=== PATIENT | female | born 1995 | race Caucasian/White ===

== ENCOUNTER 2017-04-12 17:18 | Emergency (ER) | payer SELFPAY ==
--- NOTE | 2017-04-12 18:17 | ED Physician Chart ---
ED Chief Complaint/HPI - Patient Information Date Seen:: 04/12/17 Time Seen:: 17:30 Chief Complaint:: Palpitations History of Present Illness:: onset x 3 hours of intermittent palpitations, anxiousness, generalized paresthesias of all extremities, and nervousness; pt denies trauma, H/As, neck pain, exertional C/P, SOB, Abd. Pain, A/N/V/D/C, fever, chills, or urinary s/s; LNMP: 03/19/17; pt denies ; pt had similar episode last week Allergies:: Allergies Allergy/AdvReac Type Severity Reaction Status Date / Time No Known Allergies Allergy Verified 02/25/17 23:37 Vitals:: Vital Signs - 8 hr 04/12/17 17:31 Temp 98 F HR 78 RR 16 BP 119/73 O2 Sat % 100 Historian:: Patient Review:: Nurse's Note Reviewed <Ricardo Beaver - Last Filed: 04/12/17 18:11> - Patient Information Allergies:: Allergies Allergy/AdvReac Type Severity Reaction Status Date / Time No Known Allergies Allergy Verified 02/25/17 23:37 Vitals:: Vital Signs - 8 hr 04/12/17 04/12/17 17:31 18:19 Temp 98 F HR 78 71 RR 16 14 BP 119/73 101/65 O2 Sat % 100 100 <Jayson Douglass - Last Filed: 04/12/17 19:38> ED Review of Systems - Review of Systems General/Constitutional: No fever, No chills, No weight loss, No weakness, No diaphoresis, No edema, No loss of appetite Skin: No skin lesions, No rash, No bruising Head: No headache, No light-headedness Eyes: No loss of vision, No pain, No diplopia ENT: No earache, No nasal drainage, No sore throat, No tinnitus Neck: No neck pain, No swelling, No thyromegaly, No stiffness, No mass noted Cardio Vascular: No chest pain, Palpitations, No PND, No orthopnea, No edema Pulmonary: No SOB, No cough, No sputum, No wheezing GI: No nausea, No vomiting, No diarrhea, No pain, No melena, No hematochezia, No constipation, No hematemesis G/U: No dysuria, No frequency, No hematuria, No nacturia [employer]: No vaginal discharge, No abnormal vaginal bleed, No contraction Musculoskeletal: No bone or joint pain, No back pain, No muscle pain Endocrine: No polyuria, No polydipsia Psychiatric: No prior psych history, No depression, Anxiety, No suicidal ideation, No homicidal ideation, No auditory hallucination, No visual hallucination Hematopoietic: No bruising, No lymphadenopathy Allergic/Immuno: No urticaria, No angioedema Neurological: No syncope, No focal symptoms, No weakness, No paresthesia, No headache, No seizure, No dizziness, No confusion, No vertigo <Ricardo Beaver - Last Filed: 04/12/17 18:11> ED Past Medical History - Past Medical History Obtainable: Yes Past Medical History: No significant medical hx Family History: HTN Social History: Non Smoker, No Alcohol, Illicit Drug Use, Single Surgical History: None Psychiatricy History: None Medication: Reviewed <Ricardo Beaver - Last Filed: 04/12/17 18:11> Family Medical History - Family Member Mother History Unknown: Yes <Ricardo Beaver Last Filed: 04/12/17 18:11> ED Physical Exam - Physical Examination General/Constitutional: Awake, Well-developed, well-nourished, Alert, No distress, GCS 15, Non-toxic appearing, Ambulatory Head: Atraumatic Eyes: Lids, conjuctiva normal, PERRL, EOMI Skin: Nl inspection, No rash, No skin lesions, No ecchymosis, Well hydrated, No lymphadenopathy ENMT: External ears, nose nl, TM canals nl, Nasal exam nl, Lips, teeth, gums nl , Oropharynx nl, Tonsils nl Neck: Nontender, Full ROM w/o pain, No JVD, No nuchal rigidity, No bruit, No mass, No stridor Respiratory: Nl effort/Exclusion, Clear to Auscultation, No Wheeze/Rhonchi/Rales Cardio Vascular: RRR, No murmur, gallop, rubs, NL S1 S2, Carotid/Femoral/Distal pulses equal bilaterally GI: No tenderness/rebounding/guarding, No organomegaly, No hernia, Normal BS's, Nondistended, No mass/bruits, No McBurney tenderness : No CVA tenderness Extremities: No tenderness or effusion, Full ROM, normal strength in all extremities, No edema, Normal digits & nails Neuro/Psych: Alert/oriented, DTR's symmetric, Normal sensory exam, Normal motor strength, Judgement/insight normal, Mood normal, Normal gait, No focal deficits Misc: Normal back, No paraspinal tenderness <Ricardo Beaver - Last Filed: 04/12/17 18:11> ED Labs/Radiology/EKG Results - Lab Results Results: Laboratory Tests 04/12/17 04/12/17 04/12/17 18:37 18:37 18:37 WBC 5.5 RBC 4.28 Hgb 12.9 Hct 37.9 L MCV 88.5 MCH 30.1 MCHC Differential 34.0 RDW 12.0 Plt Count 204 MPV 8.0 Neutrophils % 67.7 Lymphocytes % 24.0 Monocytes % 7.4 Eosinophils % 0.5 Basophils % 0.4 PT 10.4 INR 1.00 Sodium Potassium Chloride Carbon Dioxide Anion Gap BUN Creatinine Est GFR ( Amer) Est GFR (Non-Af Amer) BUN/Creatinine Ratio Glucose Calcium Total Bilirubin AST ALT Alkaline Phosphatase Creatine Kinase B-Natriuretic Peptide Total Protein Albumin Globulin Albumin/Globulin Ratio Triglycerides Cholesterol LDL Cholesterol Direct HDL Cholesterol Amylase Lipase Serum , Qual NEGATIVE 04/12/17 04/12/17 04/12/17 18:37 18:37 18:37 WBC RBC Hgb Hct MCV MCH MCHC Differential RDW Plt Count MPV Neutrophils % Lymphocytes % Monocytes % Eosinophils % Basophils % PT INR Sodium 138 Potassium 3.6 Chloride 105 Carbon Dioxide 25.8 Anion Gap 10.8 BUN 21 Creatinine 0.6 Est GFR ( Amer) > 60.0 Est GFR (Non-Af Amer) > 60.0 BUN/Creatinine Ratio 35.0 Glucose 95 Calcium 9.4 Total Bilirubin 1.0 AST 22 ALT 20 Alkaline Phosphatase 52 Creatine Kinase 132 B-Natriuretic Peptide < 5.0 L Total Protein 6.9 Albumin 4.6 Globulin 2.3 Albumin/Globulin Ratio 2.0 H Triglycerides 47 Cholesterol 96 LDL Cholesterol Direct 35 L HDL Cholesterol 55 Amylase 69 Lipase 18 Serum , Qual <Jayson Douglass - Last Filed: 04/12/17 19:38> ED Septic Shock - . Is Septic Shock (SBP<90, OR Lactate>4 mmol\L) present?: No - <6hrs of presentation: Vital Signs: Vital Signs - 8 hr 04/12/17 17:31 Temp 98 F HR 78 RR 16 BP 119/73 O2 Sat % 100 <Ricardo Beaver - Last Filed: 04/12/17 18:11> - . Is Septic Shock (SBP<90, OR Lactate>4 mmol\L) present?: No - <6hrs of presentation: Vital Signs: Vital Signs - 8 hr 04/12/17 04/12/17 17:31 18:19 Temp 98 F HR 78 71 RR 16 14 BP 119/73 101/65 O2 Sat % 100 100 <Jayson Douglass - Last Filed: 04/12/17 19:38> ED Reassessment (Disposition) - Reassessment Reassessment Condition:: Improved - Diagnosis Diagnosis:: Dehydration Anxiety - Patient Disposition Discharge/Transfer:: Home <Jayson Douglass - Last Filed: 04/12/17 19:38>
[2017-04-12 18:45] LABS: % BASOPHILS 0.4 % (0.0-2.0); % EOSINOPHILS 0.5 % (0.0-5.0); % MONOCYTES 7.4 % (2.0-10.0); % NEUTROPHILS 67.7 % (40.0-80.0); HEMATOCRIT 37.9 % (41.0-60); HEMOGLOBIN 12.9 gm/dL (12-16); LYMPHOCYTE ABSOLUTE 1.3 Th/cmm (1.5-3.0); MEAN CELL VOLUME 88.5 fl (81-100); MEAN CORPUSCULAR HEMOGLOBIN 30.1 pg (27.0-31.0); MONOCYTE ABSOLUTE 0.4 Th/cmm (0.3-1.0); NEUTROPHILE ABSOLUTE 3.8 Th/cmm (1.8-8.0); PLATELET COUNT 204 Th/cmm (150-400); RED BLOOD COUNT 4.28 Mil/cmm (3.80-5.10); WHITE BLOOD COUNT 5.5 Th/cmm (4.8-10.8)
[2017-04-12] MEDS: Sodium Chloride 0.9% 1,000 ML IV ONE (18:48)
[2017-04-12 19:02] LABS: PROTHROMBIN TIME (TEST) 10.4 SECONDS (9.5-11.5)
[2017-04-12 19:04] LABS: ALBUMIN 4.6 gm/dL (3.7-5.3); ALKALINE PHOSPHATASE 52 U/L (34-104); ANION GAP 10.8 (7.0-16.0); BUN - UREA NITROGEN 21 mg/dL (7-25); CALCIUM SERUM 9.4 mg/dL (8.6-10.3); CARBON DIOXIDE 25.8 mEq/L (21.0-31.0); CHLORIDE 105 mEq/L (98-107); CHOLESTEROL 96 mg/dL (<200); CREATININE - SERUM 0.6 mg/dL (0.6-1.2); CREATININE KINASE 132 U/L (30-223); GFR AFRICAN-AMERICAN > 60.0 ml/min (>90); GFR NON AFRICAN-AMERICAN > 60.0 ml/min; GLUCOSE 95 mg/dL (70-105); HDL -HIGH DENSITY LIPOPROTEIN 55 mg/dL (23-92); POTASSIUM SERUM 3.6 mEq/L (3.5-5.1); SGOT 22 U/L (13-39); SGPT/ALT 20 U/L (7-52); SODIUM SERUM 138 mEq/L (136-145); TOTAL PROTEIN,SERUM 6.9 gm/dL (6.0-8.3); TRIGLYCERIDES 47 mg/dL (<150)
[2017-04-12 19:05] LABS: AMYLASE SERUM 69 U/L (29-103); LIPASE 18 U/L (11-82)
[2017-04-12 20:19] LABS: AMPHETAMINE URINE NEGATIVE (NEGATIVE); BARBITURATES URINE NEGATIVE (NEGATIVE); COCAINE METABOLITE QUAL URINE NEGATIVE (NEGATIVE); METHADONE URINE NEGATIVE (NEGATIVE); METHAMPHETAMINES QUAL URINE NEGATIVE (NEGATIVE); OPIATES (MORPHINE) QUAL. URINE NEGATIVE (NEGATIVE); PHENCYCLIDINE (PCP) URINE NEGATIVE (NEGATIVE); TRICYCLICS (TCA) QUAL. URINE NEGATIVE (NEGATIVE)
[2017-04-12 20:20] LABS: BENZODIAZEPINES QUAL URINE NEGATIVE (NEGATIVE); CANNABINOID THC POSITIVE (NEGATIVE)
== END 2017-04-12 19:50 | disposition home or self-care (01) ==
LOC: ER 17:18
DX: F41.9 Anxiety disorder, unspecified (principal); E86.0 Dehydration
CPT/HCPCS: 36415-UA; 80053-TC; 80061-TC; 80307; 81025-TC; 82150-TC; 82550-TC; 83690-TC; 83880-TC; 84484-TC; 84703-TC; 85025-TC; 85610-TC; 93005; 94760